=== PATIENT | female | born 1955 | race Caucasian/White ===

== ENCOUNTER → 2016-05-25 | Outpatient (CLI) | payer OTHER ==
--- NOTE | 2016-05-27 13:11 | RADONC ---
RADIATION ONCOLOGY FOLLOWUP NOTE DATE: 05/25/2016 CHART NUMBER: [id number] DIAGNOSIS: Left breast cancer. STAGE: IA, [id number]. ECOG PERFORMANCE STATUS: 0. FOLLOWUP NOTE: Ms. Eli is a very pleasant, 61-year-old white female with the diagnosis of a stage IA, [id number], moderately differentiated invasive ductal carcinoma of the left breast who is presenting to us today for routine followup visit almost 1 year post completion of external beam radiation therapy. The patient presents today reporting that she is doing quite well with no complaints at this time related to her radiation therapy or disease. She has no breast or bone pain. REVIEW OF SYSTEMS: The patient's review of systems is noncontributory. She denies nausea, vomiting, fevers, chills, night sweats, diplopia, headaches, anxiety or depression, anorexia, weight loss, visual disturbances, chest pain, urinary or bowel difficulties, bone pain, or neurological problems. PHYSICAL EXAMINATION: The patient is a well-developed, well-nourished 61-year-old female in no acute distress. HEENT exam is normocephalic, atraumatic. Extraocular movements are intact. There is no palpable cervical, supraclavicular, infraclavicular, axillary, or inguinal lymphadenopathy present. Lungs are clear to auscultation and percussion. Heart has a regular rate and rhythm. Abdomen is benign with no hepatosplenomegaly, masses, or tenderness. Breast examination reveals no masses or discharge bilaterally. Skeletal examination reveals no tenderness to pressure or percussion of the bony skeleton. Extremities reveal no clubbing, cyanosis, or edema. Neurologic exam is grossly intact, as is the remainder of the physical examination. ASSESSMENT: The patient is clinically JOSE MARTIN at this time and will be seen by us again in 6 months for further followup. She will also continue to be followed by her other physicians as well. cc: RAMOS Hernandez *Laxmi Hutchison MD
== END ==
LOC: M ONCR 09:08
PROVIDERS: ATTEND Radiology Radiation Oncology
DX: C50.212 Malignant neoplasm of upper-inner quadrant of left female breast (principal)

== ENCOUNTER → 2016-05-31 | Outpatient (CLI) | payer OTHER ==
--- NOTE | 2016-05-31 13:35 | REP ---
Clinical: Pain. Technique: AP, lateral, bilateral oblique views of the right hand. Comparison: 02/11/2016. Findings: Moderate arthritic degenerative changes primarily involving the first digit and second through fifth interphalangeal joints. Findings include joint space narrowing with subchondral sclerosis and marginal spurring. No obvious acute fracture or dislocation. Impression: Moderate arthritic degenerative changes. No acute fracture or dislocation. Signed by Clyde Rashid MD 05/31/2016 01:27 P
== END ==
LOC: M RAD 12:49
PROVIDERS: ATTEND Physician Assistant
DX: M79.644 Pain in right finger(s) (principal)

== ENCOUNTER → 2016-05-31 | Outpatient (CLI) | payer OTHER ==
--- NOTE | 2016-05-31 15:02 | REP ---
BILATERAL DIGITAL SCREENING MAMMOGRAM: 05/31/2016 Comparison 12/19/2014, mammogram and left breast ultrasound. Clinical history: Status post left breast lumpectomy and radiation therapy for breast carcinoma at age 59. She has no current complaints or any known family history of breast cancer. Findings: Standard two-view mammography performed. A scar marker is present over the central and upper outer quadrant of the left breast anteriorly. There are surgical clips in the central right breast in noon position and towards the upper outer quadrant on the left. There is less breast tissue than on the previous study after lumpectomies. There is heterogeneously dense fibroglandular tissue in the retroareolar zone in a more symmetric pattern than on the previous mammogram. I do not see a dominant mass, architectural distortion, suspicious cluster of microcalcification, nor any other secondary sign of malignancy. No skin thickening or axillary mass/nodule. Additional left CC view of the nipple in profile and anterior left MLO view to better image the entire breast. There is some skin thickening related to radiation therapy and some slight increased stromal density. Impression: 1. BIRADS ACR category 2 benign. Benign findings. Postoperative and postradiation changes of the right breast without new or dominant mass, architectural distortion or other secondary signs of malignancy. There is some skin thickening and surgical clips from prior radiation and lumpectomy. No other significant finding or sign of malignancy. Recommend followup mammography one year. This mammogram was interpreted with the aid of an FDA-approved computer-aided detection system. The patient states she/he had a clinical breast exam in May 2016. The patient letter being requested is M1 (Dense). Signed by Humza Morris MD 05/31/2016 05:46 P
== END ==
LOC: M RAD 12:17
PROVIDERS: ATTEND Radiology Radiation Oncology
DX: C50.919 Malignant neoplasm of unspecified site of unspecified female breast (principal)

== ENCOUNTER → 2016-06-06 | Outpatient (REF) | payer OTHER ==
[2016-06-06 15:53] LABS: ALBUMIN 3.8 GM/DL (3.2-5.2); ALBUMIN/GLOBULIN RATIO 1.12 (1.00-1.93); ALKALINE PHOSPHATASE 57 U/L (45-117); ALT/SGPT 22 U/L (12-78); ANION GAP 10 MEQ/L (8-16); AST/SGOT 21 U/L (15-37); BILIRUBIN,TOTAL 0.4 MG/DL (0.2-1.0); BLOOD UREA NITROGEN 10 MG/DL (7-18); CALCIUM LEVEL 8.8 MG/DL (8.8-10.2); CARBON DIOXIDE LEVEL 25 MEQ/L (21-32); CHLORIDE LEVEL 108 MEQ/L (98-107); CHOLESTEROL LEVEL 183 MG/DL (<200); CREATININE FOR GFR 0.77 MG/DL (0.55-1.02); GLOMERULAR FILTRATION RATE > 60.0 (>45); GLUCOSE, FASTING 90 MG/DL (80-110); POTASSIUM SERUM 4.2 MEQ/L (3.5-5.1); SODIUM LEVEL 143 MEQ/L (136-145); TOTAL PROTEIN 7.2 GM/DL (6.4-8.2); TRIGLYCERIDES LEVEL 87 MG/DL (<150)
[2016-06-06 16:10] LABS: MEAN CORPUSCULAR HEMOGLOBIN 31.8 pg (27.0-33.0); MEAN CORPUSCULAR HGB CONC 33.6 g/dl (32.0-36.5); MEAN CORPUSCULAR VOLUME 94.7 fl (80.0-96.0); RED CELL DISTRIBUTION WIDTH 12.9 % (11.5-14.5); WHITE BLOOD COUNT 8.4 K/mm3 (4.0-10.0)
== END ==
LOC: M SFHCSACK 08:45
PROVIDERS: ATTEND Physician Assistant
DX: Z92.3 Personal history of irradiation (principal); Z85.3 Personal history of malignant neoplasm of breast; E78.5 Hyperlipidemia, unspecified; Z11.59 Encounter for screening for other viral diseases; E55.9 Vitamin D deficiency, unspecified

== ENCOUNTER → 2016-06-13 | Outpatient (REF) | payer OTHER | LOC: CANPREREF → M SFHCSACK 09:42 | PROVIDERS: ATTEND Physician Assistant | DX: Z53.8 Procedure and treatment not carried out for other reasons (principal) ==

== ENCOUNTER → 2016-10-03 | Outpatient (REF) | payer OTHER | LOC: M SFHCSACK 15:33 | PROVIDERS: ATTEND Physician Assistant | DX: J02.9 Acute pharyngitis, unspecified (principal) ==

== ENCOUNTER → 2016-12-07 | Outpatient (CLI) | payer OTHER ==
--- NOTE | 2016-12-07 12:28 | RADONC ---
RADIATION ONCOLOGY FOLLOWUP NOTE DATE: 12/07/2016 CHART NUMBER: [id number] DIAGNOSIS: Left breast cancer stage I A, [id number]. ECOG PERFORMANCE STATUS: 0. FOLLOWUP NOTE: Ms. Eli is a very pleasant, 61-year-old white female with the diagnosis of a stage I A, [id number], moderately differentiated invasive ductal carcinoma of the left breast who is presenting to us today for routine followup visit 1-1/2 years post completion of external beam radiation therapy. The patient presents today reporting that she is doing quite well with no complaints at this time related to her radiation therapy or disease. She has no breast or bone pain. REVIEW OF SYSTEMS: The patient's review of systems is noncontributory. Denies nausea, vomiting, fevers, chills, night sweats, diplopia, headaches, anxiety or depression, anorexia, weight loss, visual disturbances, chest pain, urinary or bowel difficulties, bone pain, or neurological problems. PHYSICAL EXAMINATION The patient is a well-developed, well-nourished, 61-year-old female in no acute distress. HEENT exam is normocephalic, atraumatic. Extraocular movements are intact. There is no palpable cervical, supraclavicular, infraclavicular, axillary, or inguinal lymphadenopathy present. Lungs are clear to auscultation and percussion. Heart has a regular rate and rhythm. Abdomen is benign with no hepatosplenomegaly, masses, or tenderness. Breast examination reveals no masses or discharge bilaterally. Skeletal examination reveals no tenderness to pressure or percussion of the bony skeleton. Extremities reveal no clubbing, cyanosis, or edema. Neurologic exam is grossly intact, as is the remainder of the physical examination. ASSESSMENT: The patient is clinically JOSE MARTIN at this time and will be seen by us again in 6 months for further followup. She will also continue be followed by her other physicians as well. cc: Laxmi Hutchison MD [facility]
== END ==
LOC: M ONCR 09:44
PROVIDERS: ATTEND Radiology Radiation Oncology
DX: C50.212 Malignant neoplasm of upper-inner quadrant of left female breast (principal)

== ENCOUNTER → 2016-12-19 | Outpatient (REF) | payer OTHER ==
[2016-12-19 16:47] LABS: ALBUMIN 3.7 GM/DL (3.2-5.2); ALBUMIN/GLOBULIN RATIO 1.09 (1.00-1.93); ALKALINE PHOSPHATASE 59 U/L (45-117); ALT/SGPT 26 U/L (12-78); ANION GAP 6 MEQ/L (8-16); AST/SGOT 15 U/L (15-37); BILIRUBIN,TOTAL 0.3 MG/DL (0.2-1.0); BLOOD UREA NITROGEN 16 MG/DL (7-18); CALCIUM LEVEL 9.4 MG/DL (8.8-10.2); CARBON DIOXIDE LEVEL 28 MEQ/L (21-32); CHLORIDE LEVEL 110 MEQ/L (98-107); CHOLESTEROL LEVEL 169 MG/DL (<200); CREATININE FOR GFR 0.65 MG/DL (0.55-1.02); GLOMERULAR FILTRATION RATE > 60.0 (>45); GLUCOSE, FASTING 78 MG/DL (80-110); POTASSIUM SERUM 4.5 MEQ/L (3.5-5.1); SODIUM LEVEL 144 MEQ/L (136-145); TOTAL PROTEIN 7.1 GM/DL (6.4-8.2); TRIGLYCERIDES LEVEL 86 MG/DL (<150)
== END ==
LOC: M SFHCSACK 09:37
PROVIDERS: ATTEND Physician Assistant
DX: E78.5 Hyperlipidemia, unspecified (principal); Z85.3 Personal history of malignant neoplasm of breast; E55.9 Vitamin D deficiency, unspecified

== ENCOUNTER → 2017-01-13 | Outpatient (CLI) | payer OTHER ==
--- NOTE | 2017-01-17 07:18 | RADONC ---
RADIATION ONCOLOGY FOLLOWUP NOTE DATE: 01/13/2017 CHART NUMBER: [id number] DIAGNOSIS: Left breast cancer. STAGE: I A, [id number]. ECOG PERFORMANCE STATUS: 0. FOLLOWUP NOTE: Ms. Eli is a very pleasant 61-year-old white female with the diagnosis of a stage I A, [id number], moderately differentiated invasive ductal carcinoma of the left breast who is presenting to us today for a followup visit one and a half years post completion of external beam radiation therapy. The patient presents today reporting that for the past 3 weeks or so she believes she feels a small lump in her left breast. She says it was not noticeable when she came in for followup in November of this year. REVIEW OF SYSTEMS: The patient's review of systems is noncontributory. Denies nausea, vomiting, fevers, chills, night sweats, diplopia, headaches, anxiety or depression, anorexia, weight loss, visual disturbances, chest pain, urinary or bowel difficulties, bone pain, or neurological problems. PHYSICAL EXAMINATION: The patient is a well-developed, well-nourished, 61-year-old female in no acute distress. HEENT exam is normocephalic, atraumatic. Extraocular movements are intact. There is no palpable cervical, supraclavicular, infraclavicular, axillary, or inguinal lymphadenopathy present. Lungs are clear to auscultation and percussion. Heart has a regular rate and rhythm. Abdomen is benign with no hepatosplenomegaly, masses, or tenderness. Breast examination reveals no masses or discharge bilaterally. Skeletal examination reveals no tenderness to pressure or percussion of the bony skeleton. Extremities reveal no clubbing, cyanosis, or edema. Neurologic exam is grossly intact, as is the remainder of the physical examination. ASSESSMENT: The patient today reports she does not know where the lump is and she cannot actually feel it at this time. On my physical exam, I do not feel anything suspicious either. The patient is quite anxious however and reports that it has been there for weeks and she wishes to further look into the matter. In light of her concerns, I have scheduled her for a MRI of the breast to be undertaken. She will then return to me following the MRI of the breast. We will continue to follow her closely. cc: Laxmi Hutchison MD [facility]
== END ==
LOC: M ONCR 11:27
PROVIDERS: ATTEND Radiology Radiation Oncology
DX: C50.212 Malignant neoplasm of upper-inner quadrant of left female breast (principal)

== ENCOUNTER → 2017-01-24 | Outpatient (CLI) | payer OTHER ==
--- NOTE | 2017-01-24 13:31 | REP ---
DIAGNOSTIC MAMMOGRAM LEFT BREAST WITH LEFT BREAST ULTRASOUND: Diagnostic mammogram left breast performed with MLO and CC views obtained as well as spot compression views. Patient reports a palpable abnormality in the upper left breast which is marked on the skin with a triangular marker. Comparison is made with multiple prior exams, the most recent of which is 05/31/2016. There is heterogeneous dense fibroglandular tissue in the left breast which is unchanged in appearance. Metallic clips are again seen posteriorly and superiorly. I see no new mass or clustered microcalcifications. Real-time sonographic evaluation of the left breast performed in the region of the palpable abnormality at 12-o'clock in the left breast. There is an oval cystic structure at this location 2.7 x 1.1 x 1.4 cm which is benign. IMPRESSION: ACR 2 benign. No suspicious mass or clustered microcalcifications. There is no mammographic abnormality at the site of the reported palpable lump at 12-o'clock left breast, but by ultrasound, there is an oval cyst at that location measuring 2.7 x 1.1 x 1.4 cm. No other significant findings. Clinical correlation and followup recommended. Recommend followup bilateral mammogram in May 2017. BI-RADS/ACR category 2 mammogram. Benign finding(s). Routine annual screening mammography (for women over age 40). This mammogram was interpreted with the aid of an FDA-approved computer-aided detection system. A. Negative x-ray reports should not delay biopsy if a dominant or clinically suspicious mass is present. B. Four to eight percent of cancers are not identified by x-ray. C. Adenosis and dense breasts may obscure an underlying neoplasm. The patient states she had a clinical breast exam in 01/2017. The patient letter being requested is M2. Signed by Riky Nolasco MD 01/24/2017 07:59 P
== END ==
LOC: M RAD 11:22
PROVIDERS: ATTEND Radiology Radiation Oncology
DX: N60.02 Solitary cyst of left breast (principal)
CPT/HCPCS: 76642; G0206

== ENCOUNTER → 2017-01-26 | Outpatient (REF) | payer OTHER | LOC: M SFHCWAGY 15:08 | PROVIDERS: ATTEND Nurse Practitioner Women's Health | DX: Z12.4 Encounter for screening for malignant neoplasm of cervix (principal) ==

== ENCOUNTER → 2017-03-08 | Outpatient (CLI) | payer OTHER | LOC: M SFHCSACK 13:30 | PROVIDERS: ATTEND Registered Nurse Psychiatric/Mental Health | DX: R06.02 Shortness of breath (principal) ==

== ENCOUNTER 2017-03-22 09:27 | Emergency (ER) | payer OTHER ==
[~2017-03-22] VITALS: Ht 167.6 cm; Wt 54.4 kg
[2017-03-22] MEDS ORDERED: HYDR-3719 (09:48)
[2017-03-22] MEDS ORDERED: ZOLO100T (09:48)
[2017-03-22] MEDS ORDERED: VITA1CAP40 (09:48)
[2017-03-22] MEDS ORDERED: ANAS1TAB (09:48)
[2017-03-22] MEDS ORDERED: NS 1,000 ML IV ONE (10:30)
[2017-03-22 10:46] LABS: MUCUS, URINE RFX SMALL (NEGATIVE); SPECIFIC GRAVITY UR AUTO RFX 1.016 (1.002-1.035); SQUAM EPITHELIAL CELL UR AURFX 2 /HPF (0-6)
[2017-03-22 10:55] LABS: BASO % 0.2 % (0.0-1.0); EOS % 0.4 % (0.0-3.0); IMMATURE GRANULOCYTE % 0.3 % (0-0); LYMPH # 1.7 10^3/uL (1.5-4.5); LYMPH % 18.7 % (24.0-44.0); MEAN CORPUSCULAR HEMOGLOBIN 30.7 pg (27.0-33.0); MEAN CORPUSCULAR HGB CONC 34.4 g/dl (32.0-36.5); MEAN CORPUSCULAR VOLUME 89.1 fl (80.0-96.0); MONO # 0.8 10^3/uL (0.0-0.8); MONO % 8.3 % (0.0-5.0); NEUTROPHILS # 6.7 10^3/uL (1.8-7.7); NEUTROPHILS % 72.1 % (36.0-66.0); PLATELET COUNT, AUTOMATED 320 10^3/uL (150-450); RED CELL DISTRIBUTION WIDTH 13.4 % (11.5-14.5); WHITE BLOOD COUNT 9.3 10^3/uL (4.0-10.0)
[2017-03-22 11:15] LABS: ALBUMIN 4.2 GM/DL (3.2-5.2); ALBUMIN/GLOBULIN RATIO 1.02 (1.00-1.93); ALKALINE PHOSPHATASE 69 U/L (45-117); ALT/SGPT 25 U/L (12-78); ANION GAP 8 MEQ/L (8-16); AST/SGOT 24 U/L (7-37); BILIRUBIN,TOTAL 0.4 MG/DL (0.2-1.0); BLOOD UREA NITROGEN 11 MG/DL (7-18); CALCIUM LEVEL 9.7 MG/DL (8.8-10.2); CARBON DIOXIDE LEVEL 27 MEQ/L (21-32); CHLORIDE LEVEL 104 MEQ/L (98-107); CREATININE FOR GFR 0.75 MG/DL (0.55-1.02); GLOMERULAR FILTRATION RATE > 60.0 (>45); GLUCOSE, FASTING 110 MG/DL (80-110); POTASSIUM SERUM 4.1 MEQ/L (3.5-5.1); SODIUM LEVEL 139 MEQ/L (136-145); TOTAL PROTEIN 8.3 GM/DL (6.4-8.2)
[2017-03-22 12:09] VITALS: BP 168/86
== END 2017-03-22 12:11 | disposition home or self-care (01) ==
LOC: M ED 09:27
DX: R19.7 Diarrhea, unspecified (principal); G47.30 Sleep apnea, unspecified; F99 Mental disorder, not otherwise specified; F17.210 Nicotine dependence, cigarettes, uncomplicated; Z87.442 Personal history of urinary calculi; Z98.890 Other specified postprocedural states; Z88.8 Allergy status to other drugs, medicaments and biological substances

== ENCOUNTER → 2017-03-23 | Outpatient (REF) | payer OTHER ==
[~2017-03-23] MED LIST: ANAS1TAB PO; CLON0.5T PO; HYDR-3719 PO; LORA10TA2 PO; MULT1TAB10 PO; VENTAER INH; VITA1CAP40 PO; ZOLO100T PO
== END ==
LOC: M LAB REF 11:32
PROVIDERS: ATTEND Physician Assistant
DX: Z00.00 Encounter for general adult medical examination without abnormal findings (principal)

== ENCOUNTER → 2017-03-24 | Outpatient (REF) | payer OTHER ==
[2017-03-24 15:24] LABS: BASO % 0.4 % (0.0-1.0); EOS # 0.1 10^3/uL (0.0-0.50); EOS % 0.5 % (0.0-3.0); IMMATURE GRANULOCYTE % 0.2 % (0-0); LYMPH # 1.9 10^3/uL (1.5-4.5); LYMPH % 19.2 % (24.0-44.0); MEAN CORPUSCULAR HEMOGLOBIN 30.5 pg (27.0-33.0); MEAN CORPUSCULAR HGB CONC 33.8 g/dl (32.0-36.5); MEAN CORPUSCULAR VOLUME 90.5 fl (80.0-96.0); MONO # 0.9 10^3/uL (0.0-0.8); MONO % 9.3 % (0.0-5.0); NEUTROPHILS # 6.9 10^3/uL (1.8-7.7); NEUTROPHILS % 70.4 % (36.0-66.0); PLATELET COUNT, AUTOMATED 282 10^3/uL (150-450); RED CELL DISTRIBUTION WIDTH 13.3 % (11.5-14.5); WHITE BLOOD COUNT 9.8 10^3/uL (4.0-10.0)
[2017-03-24 15:44] LABS: ALBUMIN 4.2 GM/DL (3.2-5.2); ALKALINE PHOSPHATASE 59 U/L (45-117); ALT/SGPT 24 U/L (12-78); ANION GAP 9 MEQ/L (8-16); AST/SGOT 16 U/L (7-37); BILIRUBIN,TOTAL 0.3 MG/DL (0.2-1.0); BLOOD UREA NITROGEN 12 MG/DL (7-18); CALCIUM LEVEL 9.4 MG/DL (8.8-10.2); CARBON DIOXIDE LEVEL 27 MEQ/L (21-32); CHLORIDE LEVEL 103 MEQ/L (98-107); CREATININE FOR GFR 0.69 MG/DL (0.55-1.02); FREE T4 1.16 NG/DL (0.76-1.46); GLOMERULAR FILTRATION RATE > 60.0 (>45); GLUCOSE, FASTING 99 MG/DL (80-110); POTASSIUM SERUM 4.3 MEQ/L (3.5-5.1); SODIUM LEVEL 139 MEQ/L (136-145); TOTAL PROTEIN 7.7 GM/DL (6.4-8.2)
== END ==
LOC: M SFHCSACK 08:36
PROVIDERS: ATTEND Physician Assistant
DX: R63.4 Abnormal weight loss (principal); E78.5 Hyperlipidemia, unspecified; E55.9 Vitamin D deficiency, unspecified

== ENCOUNTER → 2017-03-24 | Outpatient (CLI) | payer OTHER | LOC: M SFHCSACK 08:46 | PROVIDERS: ATTEND Registered Nurse Psychiatric/Mental Health | DX: F43.10 Post-traumatic stress disorder, unspecified (principal) ==

== ENCOUNTER 2017-03-29 09:29 | Inpatient (IN) | payer OTHER ==
[~2017-03-29] VITALS: Ht 167.6 cm; Wt 54.6 kg
[~2017-03-29 09:29] MED LIST changes: -CLON0.5T PO; -LORA10TA2 PO; -MULT1TAB10 PO; -VENTAER INH
[2017-03-29] MEDS ORDERED: MULT1TAB10 PO (09:47)
[2017-03-29 11:37] LABS: MEAN CORPUSCULAR HGB CONC 34.9 g/dl (32.0-36.5); MEAN CORPUSCULAR VOLUME 88.8 fl (80.0-96.0); PLATELET COUNT, AUTOMATED 261 10^3/uL (150-450); RED CELL DISTRIBUTION WIDTH 13.6 % (11.5-14.5); WHITE BLOOD COUNT 8.8 10^3/uL (4.0-10.0)
[2017-03-29 11:54] LABS: METHADONE URINE NEGATIVE (NEGATIVE)
[2017-03-29 12:07] LABS: ALBUMIN 3.9 GM/DL (3.2-5.2); ALBUMIN/GLOBULIN RATIO 1.05 (1.00-1.93); ALKALINE PHOSPHATASE 55 U/L (45-117); ALT/SGPT 21 U/L (12-78); ANION GAP 6 MEQ/L (8-16); AST/SGOT 14 U/L (7-37); BILIRUBIN,DIRECT < 0.1 MG/DL (0.0-0.2); BILIRUBIN,TOTAL 0.3 MG/DL (0.2-1.0); BLOOD UREA NITROGEN 20 MG/DL (7-18); CARBON DIOXIDE LEVEL 26 MEQ/L (21-32); CHLORIDE LEVEL 107 MEQ/L (98-107); CREATININE FOR GFR 0.52 MG/DL (0.55-1.02); GLOMERULAR FILTRATION RATE > 60.0 (>45); GLUCOSE, FASTING 86 MG/DL (80-110); POTASSIUM SERUM 4.5 MEQ/L (3.5-5.1); SODIUM LEVEL 139 MEQ/L (136-145); TOTAL PROTEIN 7.6 GM/DL (6.4-8.2)
[2017-03-29] MEDS ORDERED: VENTAER INH (14:00)
[2017-03-29] MEDS ORDERED: CLON0.5T PO (14:00)
[2017-03-29] MEDS ORDERED: LORA10TA2 PO (14:00)
[2017-03-29 15:49] VITALS: BP 145/88
[2017-03-29] MEDS ORDERED: LORATADINE 10 MG TAB PO PRN (17:15)
[2017-03-29] MEDS ORDERED: MOM 30ML SUSPENSION UDC PO PRN (17:15)
[2017-03-29] MEDS ORDERED: ALBUTEROL 90 MCG/ACT 8GM HFA INHALER INH PRN (17:15)
[2017-03-29] MEDS ORDERED: traZODone 50 MG TAB PO PRN (17:15)
[2017-03-29] MEDS ORDERED: ACETAMINOPHEN TAB 650MG DOSE (2X325MG) PO PRN (17:15)
[2017-03-29] MEDS ORDERED: MAALOX 30 ML SUSP *UDC PO PRN (17:15)
[2017-03-29] MEDS: LORazepam 1 MG TAB PO PRN (18:15)
[2017-03-29 18:30] VITALS: BP 138/72
[2017-03-30 06:54] VITALS: BP 147/88
[2017-03-30] MEDS: MULTIVITAMINS/MINERALS THERAP 1 TAB PO SCH (09:10)
[2017-03-30] MEDS: ARIPiprazole 2 MG TAB PO SCH (09:10)
[2017-03-30] MEDS: SERTRALINE HCL 50 MG TAB PO SCH (09:10)
--- NOTE | 2017-03-30 09:58 | HPEPDOC ---
[facility] Medical History & Physical Date of Admission Mar 29, 2017 History and Physical PCP: NISHA [facility] ATTENDING: Dr. Bunny Forrest HPI: 61yoF admitted to [facility] for unspecified depressive disorder, being medically examined today. Patient states she has had many side effects from recent medication changes. She has been experiencing weakness and decreased appetite related to this. She states she has difficulty ambulating related to weakness. No falls. She does not use any assistive devices. Denies any fevers, chills, weakness, fatigue, GARCIA, CP, SOB, cough, palpitations, abdominal pain, N/V/D or changes in bowel or bladder habits. PMH COPD (CHRONIC OBSTRUCTIVE PULMONARY DISEASE) GIARDIASIS AT AGE 18 CVA AT AGE 22 (CAUSE UNKNOWN) RESULTING IN RIGHT HEMIPARESIS THAT SHE HAD TO REHABILITATE FOR (HAD ARTERIOGRAM AND SPINAL TAP) SeiZURE DISORDER (PETIT MAL) S/P CVA AT AGE 22, RESOLVED WITH ONSET OF MENOPAUSE IN 1979 SHE HAD RARE PREGNACY AND CARRIED FETUS FOR A YEAR BEFORE DELIVERING IN HOSPITAL PLANTAR FASCIITIS, RIGHT FECAL INCONTINENCE URINARY INCONTINENCE CHRONIC LOW BACK PAIN ABDOMINAL ADHESIONS GERD (GASTROESOPHAGEAL REFLUX DISEASE) VITAMIN D DEFICIENCY ASTHMA INSOMNIA LUMBAR DISC DISEASE WITH RADICULOPATHY CHRONIC KNEE PAIN OBSTRUCTIVE SLEEP APNEA OF ADULT CHRONIC RIGHT HIP PAIN History of breast cancer status post left lumpectomy. Follows with oncology [facility], Dr. Williamson. Radiation therapy completed. SURGICAL HISTORY TONSILLECTOMY AGE 4 LAPARSCOPIC DILATION AND CURETTAGE X 3 AGE 18S CHOLECYSTECTOMY WITH ADHESION REMOVAL BETWEEN LIVER AND GALLBLADDER, COMMON BILE DUCT NICKED AGE 38 HIATAL HERNIA REPAIR AND LAPAROSCOPY FOR ADHESION REMOVAL (DR. LUIS MCADAMS) FOR FECAL INCONTINENCE AND FOOD AND REGURGITATION 2009 LUMPECTOMY OF LEFT BREAST MALIGNANT-RADIATION 02/19/15 COLONOSCOPY 2012 SOCHX: Resides in: [facility] Marital Status: Kids: 1 Employment: Disabled Tobacco use: One pack per day ETOH: 4 drinks per week Illicit Drugs: Marijuana daily for years IV Drug Use: Denies Tattoos done unprofessionally: Denies FAMHX: Mother: , diabetes Father: Unknown Siblings: 3 brothers Alive, unknown Children: Unknown ROS: As noted in HPI, otherwise 11pt ROS of systems reviewed and remarkable only for LMP NA, menopausal. PE: GEN: 61 yo F, appears stated age. Well-nourished, well developed. No acute distress. Alert and oriented x 3. Pleasant, interactive. HEENT: Normocephalic, atraumatic. Pupils are equal, round, and reactive to light. Extraocular movements are intact. No nystagmus appreciated. Sclera are nonicteric. Conjunctiva without injection. Nose midline. Nasal turbinates without bogginess. EACs both patent BL. TMs both visualized and ugalde with good cone of light, no bulging or erythema. No facial asymmetry. Moist mucous membranes. Upper and lower dentures. Pharynx pink and moist. Neck supple, trachea midline. No lymphadenopathy or thyromegaly appreciated. CHEST: Regular rate and rhythm, +S1, +S2 LUNGS: Clear to auscultation bilaterally. No wheezes, rales, or rhonchi. Breathing appears symmetric and easy. Patient is speaking in full sentences. No accessory muscle use. ABD: Flat, soft, non-tender, non-distended. +Bowel sounds throughout. No rebound or guarding. No costovertebral angle tenderness. EXT: Pulses 2+ bilaterally dorsalis pedis and radial. No lower extremity edema appreciated. SKIN: [place], dry, warm. Capillary refill <2sec. No rashes. NEURO: Alert and oriented x 3. Cranial nerves III-XII are intact. No focal deficits appreciated. EKG: Pending A&P: 61yoF admitted to [facility] for unspecified depressive disorder 1. Psych. Plan per Psychiatry. Obtain baseline EKG to assure the safety of psychiatric medications as they can prolong the QT interval. 2. Nicotine dependence. Patch available. 3. Weakness. Request physical therapy evaluation. 4. Follow up with PCP on discharge. 5. Substance use. Per psychiatry. 6. Poor appetite. BMI is noted to be 18.9. Request nutritional evaluation. Daily weight. Monitor Intake /output. 7. Asthma. Continue albuterol HFA 2 puffs every 4 hours as needed. 8. Allergic rhinitis. Continue Claritin 10 mg daily as needed. 9. History of breast cancer. Status post left lumpectomy. Follows with oncology [facility]. Pleaded radiation therapy with Dr. Abreu. Continue Anastrazole as per outpatient regimen 1 mg by mouth daily. 10. Chronic low back pain/chronic hip pain/chronic knee pain/chronic pain. Patient states her pain is controlled with hydrocodone. She follows with pain management, Dr. Mcelroy. Continue outpatient follow-up with Dr. Cunha for pain management. Continue hydrocodone 7.5/325 every 4 hours as needed. ISTOP is accessed reference #[id number] indicating hydrocodone 10/325 #180, 30 day supply dispensed 03/28/[address] Cunha. Consider pain management consultation if needed. 11. Staff member Carmen ALONSO present throughout exam. Vital Signs Vital Signs Date Time Temp Pulse Resp B/P (MAP) Pulse Ox O2 Delivery O2 Flow Rate FiO2 03/30/17 06:54 98.2 69 18 147/88 (107) 03/29/17 15:49 97 Room Air Laboratory Data Labs 24H Laboratory Tests 2 03/29/17 11:16: Nucleated Red Blood Cells % (auto) 0.0, Anion Gap 6L, Glomerular Filtration Rate > 60.0, Calcium Level 9.0, Aspartate Amino Transf (AST/SGOT) 14, Alanine Aminotransferase (ALT/SGPT) 21, Alkaline Phosphatase 55, Total Bilirubin 0.3, Direct Bilirubin < 0.1, Total Protein 7.6, Albumin 3.9, Albumin/Globulin Ratio 1.05, Thyroid Stimulating Hormone (TSH) 0.937, Salicylates Level 5.6, Urine Amphetamines Screen NEGATIVE, Urine Benzodiazepines Screen NEGATIVE, Urine Opiates Screen POSITIVEH, Urine Methadone Screen NEGATIVE, Acetaminophen Level < 2.0L, Urine Barbiturates Screen NEGATIVE, Urine Phencyclidine Screen NEGATIVE , Urine Cocaine Metabolite Screen NEGATIVE, Urine Cannabinoids Screen POSITIVEH , Ethyl Alcohol Level < 0.003 CBC/BMP Laboratory Tests 03/29/17 11:16 Red Blood Count 5.07, Mean Corpuscular Volume 88.8, Mean Corpuscular Hemoglobin 31.0, Mean Corpuscular Hemoglobin Concent 34.9, Red Cell Distribution Width 13.6 Home Medications Scheduled Anastrozole (Anastrozole) 1 Mg Tab, 1 MG PO DAILY Ergocalciferol (Vitamin D) 50,000 Unit Cap, 50,000 UNIT PO QWEEK SATURDAYS Multivitamins (Multivitamin Adults) 1 Tab Tab, 1 TAB PO DAILY Sertraline Hcl (Zoloft) 100 Mg Tab, 200 MG PO DAILY Scheduled PRN Acetaminophen/Hydrocodone (Hydrocodone/Acetaminophen 10-325 mg) 1 Tab Tab, 1 TAB PO Q4H PRN for PAIN Albuterol Sulfate (Ventolin Hfa) 108 Mcg/Act Aer, 2 PUFFS INH Q4H PRN for SHORTNESS OF BREATH Clonazepam (Clonazepam) 0.5 Mg Tab, 0.25 MG PO BID PRN for ANXIETY Loratadine (Loratadine) 10 Mg Tab, 10 MG PO DAILY PRN for ALLERGIES Allergies Coded Allergies: Statins (Verified Allergy, Severe, swelling, 03/22/17) Fluoxetine (Verified Adverse Reaction, Severe, suicidal ideations, ) Seema Sims Mar 30, 2017 09:58
[2017-03-30] MEDS: ANEXSIA, NORCO 7.5MG/325MG TABLET(HYDROCODONE/APAP) PO PRN ×2 (10:56→16:34)
[2017-03-30 18:00] VITALS: BP 140/73
--- NOTE | 2017-03-30 19:18 | ECGEPIP ---
Stationary ECG Study [facility] Test Date: 2017-03-30 Pat Name: YUE CAPUTO Department: Room: [place] [address] Gender: F Panel Cutter: JUAN A : 1955 Requested By: Seema Sims Order Number: [id number] Reading MD: Bunny Forrest Measurements Intervals [place] Rate: 67 P: 81 LA: 131 QRS: 75 QRSD: 93 T: 52 QT: 364 QTc: 384 Interpretive Statements SINUS RHYTHM Comparison tracing not on file Electronically Signed On 03-30-2017 19:18:50 EST by Bunny Forrest
[2017-03-30] MEDS: LORazepam 1 MG TAB PO PRN (20:24)
[2017-03-31 06:42] VITALS: BP 142/77
[2017-03-31] MEDS: MULTIVITAMINS/MINERALS THERAP 1 TAB PO SCH (08:19)
[2017-03-31] MEDS: SERTRALINE HCL 50 MG TAB PO SCH (08:19)
[2017-03-31] MEDS: ARIPiprazole 2 MG TAB PO SCH (08:19)
[2017-03-31 08:58] LABS: ANION GAP 6 MEQ/L (8-16); BLOOD UREA NITROGEN 15 MG/DL (7-18); CALCIUM LEVEL 8.9 MG/DL (8.8-10.2); CARBON DIOXIDE LEVEL 30 MEQ/L (21-32); CHLORIDE LEVEL 105 MEQ/L (98-107); CREATININE FOR GFR 0.67 MG/DL (0.55-1.02); GLOMERULAR FILTRATION RATE > 60.0 (>45); GLUCOSE, FASTING 137 MG/DL (80-110); SODIUM LEVEL 141 MEQ/L (136-145)
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
[2017-03-31] MEDS: ANEXSIA, NORCO 7.5MG/325MG TABLET(HYDROCODONE/APAP) PO PRN ×2 (14:33→18:53)
[2017-03-31 18:00] VITALS: BP 132/88
[2017-03-31] MEDS: LORazepam 1 MG TAB PO PRN (20:29)
[2017-04-01 06:19] VITALS: BP 140/76
[2017-04-01] MEDS: MULTIVITAMINS/MINERALS THERAP 1 TAB PO SCH (08:04)
[2017-04-01] MEDS: ANEXSIA, NORCO 7.5MG/325MG TABLET(HYDROCODONE/APAP) PO PRN ×3 (08:04→22:29)
[2017-04-01] MEDS: SERTRALINE HCL 50 MG TAB PO SCH (08:04)
[2017-04-01] MEDS ORDERED: traZODone 25MG PER 1/2 TABLET PO PRN (10:15)
--- NOTE | 2017-04-01 10:19 | MHIPNPDOC ---
[facility] Progress Note Progress Note DATE OF SERVICE: 04/01/17 HISTORY: Patient reports improved mood, denies SI intent and plan. Reports good sleep after taking the ativan last night. Patient states the ativan was too strong for anxiety and it would "knock me out", discussed with patient about taking atarax instead for anxiety. Patient has not taken the trazodone yet. Patient denies having significant nightmares and in flashbacks since being in the hospital. Denies manic symptoms. Patient without side effects from any of the medications. VITAL SIGNS: See below. NEW TEST RESULTS: na CURRENT MEDICATIONS: See below. MENTAL STATUS EXAMINATION: Behavior: cooperative, calm, related Speech: Is normal RRVT Thought processes including: linear Thought content: appropriate to conversation Judgment: fair Insight: fair Orientation: aaox3 Mood: better Affect: neutral, appropriate DIAGNOSES: 1. MDD 2. PTSD ASSESSMENT: Patient's mood is improving in the therapeutic milieu and with better sleep. MANAGEMENT PLAN: Continue plan as per Dr. Ann. - Zoloft 50 mg daily - Abilify 5 mg qam - Discontinued ativan - Begin atarax 10 mg q6 PRN for anxiety TIME SPENT: 25 minutes. Vital Signs Vital Signs Date Time Temp Pulse Resp B/P (MAP) Pulse Ox O2 Delivery O2 Flow Rate FiO2 04/01/17 08:55 16 04/01/17 06:19 96.7 76 140/76 (97) 03/30/17 10:32 Room Air 03/29/17 15:49 97 Current Medications Current Medications Acetaminophen (Tylenol Tab) 650 mg Q6HP PRN PO HEADACHE or DISCOMFORT Last administered on 03/29/17 18:16; Start 03/29/17 at 17:15; Stop 04/28/17 at 17: 14 Acetaminophen/ Hydrocodone Bitart (Anexsia, [place] 7.5mg/325mg) 1 tab Q4HP PRN PO MODERATE/SEVERE PAIN (PS 5-10) Last administered on 04/01/17 08:04; Start 03/30/17 at 10:00; Stop 04/06/17 at 09:59 Al Hydrox/Mg Hydrox/Simethicone (Mylanta) 30 ml Q4HP PRN PO HEARTBURN/ INDIGESTION; Start 03/29/17 at 17:15; Stop 04/28/17 at 17:14 Albuterol Sulfate (Proventil, Ventolin Hfa) 2 puff Q4H PRN INH SHORTNESS OF BREATH; Start 03/29/17 at 17:15; Stop 04/28/17 at 17:14 Aripiprazole (AbiLIFY) 2 mg QAM PO Last administered on 03/31/17 08:19; Start 03/30/17 at 09:00; Stop 03/31/17 at 16:23; Status DC Aripiprazole (AbiLIFY) 5 mg QAM PO Last administered on 04/01/17 08:04; Start 04/01/17 at 09:00; Stop 05/01/17 at 08:59 Home Med (Med Rec Complete!) ASDIRECTED XX ; Start 03/29/17 at 14:15; Stop at 14:15; Status DC Hydroxyzine HCl (Atarax) 10 mg Q6HP PRN PO ANXIETY/AGITATION; Start 04/01/17 at 10:15; Stop 05/01/17 at 10:14; Status UNV Loratadine (Claritin) 10 mg DAILY PRN PO ALLERGIES; Start 03/29/17 at 17:15; Stop 04/28/17 at 17:14 Lorazepam (Ativan) 1 mg Q4HP PRN PO ANXIETY/AGITATION Last administered on 20:29; Start 03/29/17 at 17:15; Stop 04/05/17 at 17:14 Magnesium Hydroxide (Milk Of Magnesia) 30 ml DAILYPRN PRN PO CONSTIPATION; Start 03/29/17 at 17:15; Stop 04/28/17 at 17:14 Miscellaneous (Unresolved Patient Own Med Order) SEE LABEL COMMENTS UNRESOLVED XX ; Start 03/30/17 at 00:01; Stop 04/29/17 at 00:00 Multivitamins (Theragram-M) 1 tab DAILY PO Last administered on 04/01/17 08: 04; Start 03/30/17 at 09:00; Stop 04/29/17 at 08:59 Patient Own Medication (Patient'S Own Med) 1 ea DAILY PO ; Start 03/31/17 at 09 :00; Stop 04/30/17 at 08:59; Status UNV Sertraline HCl (Zoloft) 50 mg QAM PO Last administered on 04/01/17t 08:04; Start 03/30/17 at 09:00; Stop 04/29/17 at 08:59 Trazodone HCl (Desyrel) 50 mg QHSP PRN PO INSOMNIA; Start 03/29/17 at 17:15; Stop 04/28/17 at 17:14 Allergies Coded Allergies: Statins (Verified Allergy, Severe, swelling, 03/22/17) Fluoxetine (Verified Adverse Reaction, Severe, suicidal ideations, ) YOJANA BUTTERFIELD MD Apr 01, 2017 10:19
[2017-04-01 18:00] VITALS: BP 160/82
[2017-04-02 06:34] VITALS: BP 146/76
[2017-04-02] MEDS: MULTIVITAMINS/MINERALS THERAP 1 TAB PO SCH (08:06)
[2017-04-02] MEDS: SERTRALINE HCL 50 MG TAB PO SCH (08:06)
[2017-04-02] MEDS: hydrOXYzine 10 MG TAB PO PRN (08:57)
[2017-04-02] MEDS ORDERED: ANASTRAZOLE 1 MG PO SCH (09:00)
[2017-04-02] MEDS: ANEXSIA, NORCO 7.5MG/325MG TABLET(HYDROCODONE/APAP) PO PRN ×2 (09:08→13:14)
--- NOTE | 2017-04-02 10:55 | MHIPNPDOC ---
[facility] Progress Note Progress Note DATE OF SERVICE: 04/02/17 HISTORY: States the trazodone last night helped her sleep a few hours, but the sleep was not restful as she tossed and turned and had nightmares. Patient wishes to try different sleeping agent. Reports mild anxiety, denies depression , did not endorse SI intent and plan. Denies any other medication side effects. States the atarax is working for her anxiety. VITAL SIGNS: See below. NEW TEST RESULTS: na CURRENT MEDICATIONS: See below. MENTAL STATUS EXAMINATION: Behavior: cooperative, calm, related Speech: Is normal RRVT Thought processes including: linear Thought content: appropriate to conversation Judgment: fair Insight: fair Orientation: aaox3 Mood: OK Affect: neutral, appropriate DIAGNOSES: 1. MDD 2. PTSD ASSESSMENT: Patient's mood is improving in the therapeutic milieu and with better sleep. MANAGEMENT PLAN: Continue plan as per Dr. Ann. - Zoloft 50 mg daily - Abilify 5 mg qam - Begin atarax 10 mg q6 PRN for anxiety - Begin gabapentin 300 mg qhs for sleep TIME SPENT: 25 minutes. Vital Signs Vital Signs Date Time Temp Pulse Resp B/P (MAP) Pulse Ox O2 Delivery O2 Flow Rate FiO2 04/02/17 09:08 16 04/02/17 06:34 97.7 71 146/76 (99) 03/30/17 10:32 Room Air 03/29/17 15:49 97 Current Medications Current Medications Acetaminophen (Tylenol Tab) 650 mg Q6HP PRN PO HEADACHE or DISCOMFORT Last administered on 03/29/17 18:16; Start 03/29/17 at 17:15; Stop 04/28/17 at 17: 14 Acetaminophen/ Hydrocodone Bitart (Anexsia, [place] 7.5mg/325mg) 1 tab Q4HP PRN PO MODERATE/SEVERE PAIN (PS 5-10) Last administered on 04/02/17 09:08; Start 03/30/17 at 10:00; Stop 04/06/17 at 09:59 Al Hydrox/Mg Hydrox/Simethicone (Mylanta) 30 ml Q4HP PRN PO HEARTBURN/ INDIGESTION; Start 03/29/17 at 17:15; Stop 04/28/17 at 17:14 Albuterol Sulfate (Proventil, Ventolin Hfa) 2 puff Q4H PRN INH SHORTNESS OF BREATH; Start 03/29/17 at 17:15; Stop 04/28/17 at 17:14 Aripiprazole (AbiLIFY) 2 mg QAM PO Last administered on 03/31/17 08:19; Start 03/30/17 at 09:00; Stop 03/31/17 at 16:23; Status DC Aripiprazole (AbiLIFY) 5 mg QAM PO Last administered on 04/02/17 08:06; Start 04/01/17 at 09:00; Stop 05/01/17 at 08:59 Home Med (Med Rec Complete!) ASDIRECTED XX ; Start 03/29/17 at 14:15; Stop at 14:15; Status DC Hydroxyzine HCl (Atarax) 10 mg Q6HP PRN PO ANXIETY/AGITATION Last administered on 04/02/17 08:57; Start 04/01/17 at 10:15; Stop 05/01/17 at 10:14 Loratadine (Claritin) 10 mg DAILY PRN PO ALLERGIES; Start 03/29/17 at 17:15; Stop 04/28/17 at 17:14 Lorazepam (Ativan) 1 mg Q4HP PRN PO ANXIETY/AGITATION Last administered on 20:29; Start 03/29/17 at 17:15; Stop 04/05/17 at 17:14 Magnesium Hydroxide (Milk Of Magnesia) 30 ml DAILYPRN PRN PO CONSTIPATION; Start 03/29/17 at 17:15; Stop 04/28/17 at 17:14 Miscellaneous (Unresolved Patient Own Med Order) SEE LABEL COMMENTS UNRESOLVED XX ; Start 03/30/17 at 00:01; Stop 04/29/17 at 00:00 Multivitamins (Theragram-M) 1 tab DAILY PO Last administered on 04/02/17 08: 06; Start 03/30/17 at 09:00; Stop 04/29/17 at 08:59 Patient Own Medication (Patient'S Own Med) 1 ea DAILY PO ; Start 04/02/17 at 09 :00; Stop 05/02/17 at 08:59; Status Future Hold Sertraline HCl (Zoloft) 50 mg QAM PO Last administered on 04/02/17 08:06; Start 03/30/17 at 09:00; Stop 04/29/17 at 08:59 Trazodone HCl (Desyrel) 25 mg QHSP PRN PO INSOMNIA Last administered on 21:11; Start 04/01/17 at 10:15; Stop 05/01/17 at 10:14 Trazodone HCl (Desyrel) 50 mg QHSP PRN PO INSOMNIA; Start 03/29/17 at 17:15; Stop 04/01/17 at 10:12; Status DC Allergies Coded Allergies: Statins (Verified Allergy, Severe, swelling, 03/22/17) Fluoxetine (Verified Adverse Reaction, Severe, suicidal ideations, ) YOJANA BUTTERFIELD MD Apr 02, 2017 10:55
--- NOTE | 2017-04-02 11:35 | MHIPN ---
DATE: 03/31/2017 VITAL SIGNS: Temperature 97.6, pulse 74, respirations 18, blood pressure 142/77. CURRENT MEDICATIONS: - Abilify 2 mg every morning - Zoloft 50 mg every morning - Ativan 1 mg every 4 hours as needed - trazodone 50 mg at bedtime as needed PSYCHIATRIC HISTORY: Patient is agitating for discharge. She claims that she feels all better and wants to be discharged back home; however, the patient has minimal social supports. She has no family in the area. She lives alone. She has had chronic suicidal impulses with a suicide plan. Staff and her psychiatric provider have been very concerned about her and was arranging for admission for [facility] and are supporting her hospitalization here. The patient states that the diarrhea is much improved now that she is on the lower dose of Zoloft. She is tolerating the Abilify well also. She is not sure about the dosage. Staff at the [facility] have not been cooperative sending information regarding her dosages. The patient states that her posttraumatic stress disorder (PTSD) symptoms have been minimal. Her appetite is good. She reports sleeping reasonably well at night on the Ativan as needed. MENTAL STATUS EXAMINATION: Patient is alert, oriented and cooperative. Patient still reports anxiety but minimizes any depression. She may well be covering. She does have chronic suicidal ideation with a plan, but today minimizes it. She is not hearing voices. No signs of paranoia or thought disorder. Grooming and hygiene appear good. No signs of organicity. DIAGNOSIS: Major depression, recurrent, moderate severity. Posttraumatic stress disorder (PTSD). PLAN: Continue psychotropics. Continue milieu therapy. Continue attempt to get information from her outpatient provider to coordinate care. Patient is not safe to be discharged in my opinion, especially as her outpatient provider is strongly supporting inpatient psychiatric care.
[2017-04-02 18:00] VITALS: BP 152/72
[2017-04-02] MEDS: GABAPENTIN 300 MG CAP PO SCH (21:00)
[2017-04-03 06:13] VITALS: BP 132/77
[2017-04-03] MEDS: SERTRALINE HCL 50 MG TAB PO SCH (08:10)
[2017-04-03] MEDS: MULTIVITAMINS/MINERALS THERAP 1 TAB PO SCH (08:10)
[2017-04-03] MEDS: ANEXSIA, NORCO 7.5MG/325MG TABLET(HYDROCODONE/APAP) PO PRN ×3 (08:11→20:23)
[2017-04-03 18:02] VITALS: BP 132/82
[2017-04-03] MEDS: GABAPENTIN 300 MG CAP PO SCH (20:22)
[2017-04-04 06:48] VITALS: BP 147/85
[2017-04-04] MEDS: MULTIVITAMINS/MINERALS THERAP 1 TAB PO SCH (08:15)
[2017-04-04] MEDS: SERTRALINE HCL 50 MG TAB PO SCH (08:15)
[2017-04-04] MEDS: hydrOXYzine 10 MG TAB PO PRN (09:26)
[2017-04-04] MEDS: ANEXSIA, NORCO 7.5MG/325MG TABLET(HYDROCODONE/APAP) PO PRN (11:19)
[2017-04-04 18:34] VITALS: BP 130/87
[2017-04-04] MEDS: GABAPENTIN 300 MG CAP PO SCH (20:25)
[2017-04-05] MEDS: ANEXSIA, NORCO 7.5MG/325MG TABLET(HYDROCODONE/APAP) PO PRN ×2 (05:45→11:49)
[2017-04-05 06:54] VITALS: BP 145/81
[2017-04-05] MEDS: MULTIVITAMINS/MINERALS THERAP 1 TAB PO SCH (08:04)
[2017-04-05] MEDS: SERTRALINE HCL 50 MG TAB PO SCH (08:04)
--- NOTE | 2017-04-05 09:34 | MHIPN ---
DATE: 04/04/2017 VITAL SIGNS: Temperature 97.5, pulse 92, respirations 14, blood pressure 147/85. CURRENT MEDICATIONS: - gabapentin 300 mg at bedtime - Abilify 5 mg every morning - Zoloft 50 mg every morning PSYCH HISTORY: Patient states that her mood is less depressed. On Monday, she wanted to be discharged. However, now she is happy that she was here over the hol. She felt supported here. She feels more positive and hopeful about the future. Her appetite is improved. She slept better at night. She is less nervous. The gabapentin helped with her pain in her hip. She is tolerating her medication well. She has had no diarrhea from the Zoloft. Her friend [place] has visited twice over the weekend. She denies any suicidal ideation over the weekend. She admits to having suicidal ideation off and on over the decades, but denies any such here today or over the weekend. The patient has been social with her peers here on the unit. She has been attending the group therapy program. She has been attending the group therapy program. She has gained 4 pounds since admission. No other complaints. MENTAL STATUS EXAMINATION: Patient is alert, oriented and cooperative. Affect definitely improved. Anxiety is much reduced. Patient less depressed. She does not appear suicidal. She is not homicidal. Insight appears improved. Judgment appears good today. No signs of psychosis. Grooming and hygiene appear good. DIAGNOSES: Major depression, recurrent, improved. Posttraumatic stress disorder (PTSD) by history. Cannabis use disorder. PLAN: Continue psychotropics. Staff to start working on discharge planning.
[2017-04-05] MEDS: hydrOXYzine 10 MG TAB PO PRN (09:39)
[2017-04-05] MEDS ORDERED: ARIP5TA PO (10:22)
[2017-04-05] MEDS ORDERED: SERT50TA PO (10:24)
--- NOTE | 2017-04-06 11:43 | MHDS ---
DATE OF ADMISSION: 03/29/2017 DATE OF DISCHARGE: 04/05/2017 VITAL SIGNS: Temperature 98.3, pulse 78, respiration 20, blood pressure 145/81. CURRENT MEDICATIONS: - Zoloft 50 mg every morning - Abilify 5 mg by mouth every morning - gabapentin 300 mg by mouth nightly LABS: CBC and differential within normal limits. Chem survey within normal limits except for elevated potassium glucose of 137. Toxicology was positive for opiates and for cannabinoids. DISCHARGE DIAGNOSES: Major depression, recurrent, moderate severity. Posttraumatic stress syndrome (PTSD) by history. CHIEF COMPLAINT: The patient was sent to the emergency room by her primary physician after reporting depression and suicidal ideation. HISTORY OF PRESENT ILLNESS: This is a 61-year-old white female with a history of depression dating back to her 20s. The patient currently feels helpless and hopeless. She is isolated with few social supports. Her sleep patterns are problematic. She has had suicidal ideation with a plan but refused to divulge what the plan is. Appetite is poor. She has had weight loss of 30-40 pounds. Her concentration is poor. She has had significant diarrhea from her high dosage of Zoloft 200 mg per day. She has felt weak with lack of energy. The patient had been on Abilify for a number of years with some benefit but it was weaned off over the summer. The patient's mood has worsened since then. Her outpatient provider at transitional living services ([facility]) was planning on getting her admitted to another psychiatric facility where she has been on the waiting list. PROGRESS ON THE UNIT: The patient was initially quite oppositional to the hospitalization. She was irritated about being in the hospital over weekend. She was encouraged to cooperate with the therapeutic milieu program, which she grudgingly agreed to. Her Zoloft was reduced to 50 mg per day. She had no diarrhea on it. Her bowels returned to normal. She is a little more energetic. The patient was given a low dose gabapentin at night to help her sleep with pain. The gabapentin was very helpful for her hip pain. She was restarted Abilify 2 mg per day. It was tolerated well. The dose was increased to 5 mm every morning also with some benefit. The patient did well over the weekend. Plans were made for discharge with involvement of caser uplife enrichment manager from [facility]. MENTAL STATUS EXAMINATION AT TIME OF DISCHARGE: Mood and affect appear good. She had good eye contact. Full range of affect. No signs of depression. She denied suicidal thoughts. She had no plans. She was not hearing voices. No paranoid or thought disorder. Anxiety was minimal. Grooming and hygiene appear good. No signs of dangerousness. Memory functions intact. ASSESSMENT: The patient appears to have reached maximal hospital benefit. PLAN: Discharge to the community with mental health followup.
== END 2017-04-05 14:00 | disposition home or self-care (01) | DRG 751 ==
LOC: M ED 09:29 → M ED INP 14:29 → M PSY 15:40
PROVIDERS: ADMIT Psychiatry & Neurology Psychiatry; ATTEND Psychiatry & Neurology Psychiatry
DX: F33.1 Major depressive disorder, recurrent, moderate (principal); F43.10 Post-traumatic stress disorder, unspecified; J44.9 Chronic obstructive pulmonary disease, unspecified; G47.33 Obstructive sleep apnea (adult) (pediatric); K21.9 Gastro-esophageal reflux disease without esophagitis; E55.9 Vitamin D deficiency, unspecified; J45.909 Unspecified asthma, uncomplicated; M54.5 Low back pain; Z85.3 Personal history of malignant neoplasm of breast; F17.200 Nicotine dependence, unspecified, uncomplicated; G89.29 Other chronic pain; Z79.899 Other long term (current) drug therapy; Z88.8 Allergy status to other drugs, medicaments and biological substances

== ENCOUNTER → 2017-04-12 | Outpatient (CLI) | payer OTHER | LOC: M RAD 10:02 | DX: Z12.2 Encounter for screening for malignant neoplasm of respiratory organs (principal); F17.210 Nicotine dependence, cigarettes, uncomplicated; R91.8 Other nonspecific abnormal finding of lung field | CPT/HCPCS: G0297 ==

== ENCOUNTER → 2018-01-17 | Outpatient (REF) | payer OTHER ==
[2018-01-17 14:11] LABS: BASO % 0.3 % (0.0-1.0); EOS # 0.1 10^3/uL (0.0-0.50); EOS % 0.8 % (0.0-3.0); HEMATOCRIT 48.5 % (36.0-47.0); HEMOGLOBIN 16.4 g/dl (12.0-15.5); IMMATURE GRANULOCYTE % 0.2 % (0-3.0); LYMPH # 2.4 10^3/uL (1.5-4.5); LYMPH % 24.5 % (24.0-44.0); MEAN CORPUSCULAR HEMOGLOBIN 31.1 pg (27.0-33.0); MEAN CORPUSCULAR HGB CONC 33.8 g/dl (32.0-36.5); MEAN CORPUSCULAR VOLUME 91.9 fl (80.0-96.0); MONO # 0.9 10^3/uL (0.0-0.8); MONO % 8.6 % (0.0-5.0); NEUTROPHILS # 6.5 10^3/uL (1.8-7.7); NEUTROPHILS % 65.6 % (36.0-66.0); PLATELET COUNT, AUTOMATED 252 10^3/uL (150-450); RED BLOOD COUNT 5.28 10^6/uL (4.00-5.40); RED CELL DISTRIBUTION WIDTH 13.9 % (11.5-14.5); WHITE BLOOD COUNT 9.9 10^3/uL (4.0-10.0)
[2018-01-17 14:28] LABS: ALBUMIN 3.9 GM/DL (3.2-5.2); ALBUMIN/GLOBULIN RATIO 1.08 (1.00-1.93); ALKALINE PHOSPHATASE 69 U/L (45-117); ALT/SGPT 27 U/L (12-78); ANION GAP 6 MEQ/L (8-16); AST/SGOT 18 U/L (7-37); BILIRUBIN,TOTAL 0.5 MG/DL (0.2-1.0); BLOOD UREA NITROGEN 13 MG/DL (7-18); CALCIUM LEVEL 9.3 MG/DL (8.8-10.2); CARBON DIOXIDE LEVEL 28 MEQ/L (21-32); CHLORIDE LEVEL 108 MEQ/L (98-107); CREATININE FOR GFR 0.76 MG/DL (0.55-1.30); GLOMERULAR FILTRATION RATE > 60.0 (>45); GLUCOSE, FASTING 91 MG/DL (70-100); POTASSIUM SERUM 4.4 MEQ/L (3.5-5.1); SODIUM LEVEL 142 MEQ/L (136-145); TOTAL PROTEIN 7.5 GM/DL (6.4-8.2)
[2018-01-17 14:37] LABS: TOTAL 25(OH) VITAMIN D 38.1 NG/ML (30.0-100.0)
== END ==
LOC: M SFHCSACK 08:08
DX: M79.7 Fibromyalgia (principal); E78.5 Hyperlipidemia, unspecified; E55.9 Vitamin D deficiency, unspecified

== ENCOUNTER → 2018-02-14 | Outpatient (CLI) | payer OTHER | LOC: M WUC 09:28 | DX: M43.16 Spondylolisthesis, lumbar region (principal); M25.78 Osteophyte, vertebrae; M51.36 Other intervertebral disc degeneration, lumbar region; M12.88 Other specific arthropathies, not elsewhere classified, other specified site; M54.42 Lumbago with sciatica, left side; M54.41 Lumbago with sciatica, right side; M25.551 Pain in right hip; M25.552 Pain in left hip | CPT/HCPCS: 72110 ==

== ENCOUNTER → 2018-03-06 | Outpatient (REF) | payer OTHER ==
[2018-03-09 08:08] LABS: HPV HYBRID CAPTURE II Negative (Negative)
== END ==
LOC: M SFHCWAGY 08:47
DX: Z12.4 Encounter for screening for malignant neoplasm of cervix (principal)
CPT/HCPCS: 88142

== ENCOUNTER → 2018-03-06 | Outpatient (CLI) | payer OTHER | LOC: M WHC 08:39 | DX: Z12.31 Encounter for screening mammogram for malignant neoplasm of breast (principal); Z78.0 Asymptomatic menopausal state; Z85.3 Personal history of malignant neoplasm of breast; Z80.42 Family history of malignant neoplasm of prostate; N64.1 Fat necrosis of breast; N60.31 Fibrosclerosis of right breast; N60.32 Fibrosclerosis of left breast; M85.851 Other specified disorders of bone density and structure, right thigh; M85.852 Other specified disorders of bone density and structure, left thigh; M85.88 Other specified disorders of bone density and structure, other site | CPT/HCPCS: 77067 ==

== ENCOUNTER → 2018-07-16 | Outpatient (CLI) | payer MEDICARE, MEDICAID ==
[~2018-07-16] MED LIST changes: +ABIL1TAB11 PO; -ANAS1TAB PO; +ANAS1TAB2 PO; +ARIP1TAB6 PO; +CLON0.5T8 PO; +CYCL10TA PO; +HYDR-3363 PO; +HYDR-4517 PO; +LORA-243 PO; +MULT1TAB10 PO; +SERT-141 PO; +VENTAER INH; -VITA1CAP40 PO; +VITA50005 PO; +ZOLO25TA PO
--- NOTE | 2018-07-17 14:40 | REP ---
Clinical: Lung screening. History smoking. Comparison: 04/12/2017 Technique: Axial low-dose noncontrast images from the thoracic inlet to the upper abdomen using lung screening technique. Findings: The lung huber are well-aerated. Minimal apical scarring (right greater than left) again noted and essentially stable. No consolidation, significant nodule or mass lesion is appreciated. No pleural effusion/reaction or pneumothorax. Tracheobronchial tree is patent. Mediastinum demonstrates mild atherosclerotic changes of the coronary arteries without cardiomegaly. Impression: Lung-RADS category I. Areas of biapical scarring (right greater than left) appear relatively stable. No nodule or suspicious abnormality. Management recommendations include annual low-dose CT follow-up examination. Electronically Signed by Clyde Rashid MD 07/17/2018 02:32 P
== END ==
LOC: M RAD 08:37
PROVIDERS: ATTEND Internal Medicine Pulmonary Disease
DX: Z12.2 Encounter for screening for malignant neoplasm of respiratory organs (principal); J98.4 Other disorders of lung; F17.218 Nicotine dependence, cigarettes, with other nicotine-induced disorders

== ENCOUNTER → 2018-07-26 | Outpatient (REF) | payer MEDICARE, MEDICAID, OTHER ==
[2018-07-26 15:10] LABS: BASO # 0.1 10^3/uL (0.0-0.2); BASO % 0.4 % (0.0-1.0); EOS % 0.1 % (0.0-3.0); HEMATOCRIT 50.7 % (36.0-47.0); LYMPH # 2.6 10^3/uL (1.5-4.5); LYMPH % 18.7 % (24.0-44.0); MEAN CORPUSCULAR HEMOGLOBIN 31.1 pg (27.0-33.0); MEAN CORPUSCULAR HGB CONC 33.5 g/dl (32.0-36.5); MEAN CORPUSCULAR VOLUME 92.9 fl (80.0-96.0); MONO # 1.2 10^3/uL (0.0-0.8); MONO % 8.6 % (0.0-5.0); NEUTROPHILS % 71.9 % (36.0-66.0); PLATELET COUNT, AUTOMATED 324 10^3/uL (150-450); RED BLOOD COUNT 5.46 10^6/uL (4.00-5.40); WHITE BLOOD COUNT 13.9 10^3/uL (4.0-10.0)
[2018-07-26 15:22] LABS: ALBUMIN 3.9 GM/DL (3.2-5.2); ALT/SGPT 29 U/L (12-78); BILIRUBIN,TOTAL 0.5 MG/DL (0.2-1.0); BLOOD UREA NITROGEN 14 MG/DL (7-18); CALCIUM LEVEL 9.4 MG/DL (8.8-10.2); CARBON DIOXIDE LEVEL 25 MEQ/L (21-32); CHLORIDE LEVEL 107 MEQ/L (98-107); CHOLESTEROL LEVEL 218 MG/DL (<200); CHOLESTEROL RISK RATIO 3.353 (<5); CREATININE FOR GFR 0.74 MG/DL (0.55-1.30); FREE T4 1.03 NG/DL (0.76-1.46); GLOMERULAR FILTRATION RATE > 60.0 (>45); GLUCOSE, FASTING 95 MG/DL (70-100); HDL CHOLESTEROL 65 MG/DL (>40); LDL CHOLESTEROL 125 MG/DL (<100); NON-HDL-C 153 MG/DL; POTASSIUM SERUM 4.7 MEQ/L (3.5-5.1); SODIUM LEVEL 138 MEQ/L (136-145); TOTAL PROTEIN 7.6 GM/DL (6.4-8.2); TRIGLYCERIDES LEVEL 142 MG/DL (<150)
[2018-07-26 15:25] LABS: TOTAL 25(OH) VITAMIN D 56.6 NG/ML (30.0-100.0)
== END ==
LOC: M SFHCSACK 09:12
PROVIDERS: ATTEND Physician Assistant
DX: Z00.00 Encounter for general adult medical examination without abnormal findings (principal); E78.2 Mixed hyperlipidemia; Z13.29 Encounter for screening for other suspected endocrine disorder; E55.9 Vitamin D deficiency, unspecified

== ENCOUNTER → 2018-12-20 | Outpatient (REF) | payer MEDICARE, MEDICAID ==
[~2018-12-20] MED LIST changes: +BUPR150T3 PO; +CHOL50002 PO; +CLON0.5T17 PO; +DOXY100C PO; +INCR1INH INH; +LITH150C PO; +MULTCAP PO; +VRAY1.5C PO
[2018-12-23 00:06] LABS: ANTI THROMBIN 3 ANTIGEN IMMUNO 101 % (72-124); ANTI THROMBIN 3 FUNCT ACTIVITY 122 % (75-135); PROTEIN C FUNCTIONAL ACTIVITY 154 % (73-180); PROTEIN S FUNCTIONAL ACTIVITY 95 % (63-140)
[2018-12-25 11:00] LABS: DRVV SCREEN 35.3 SEC
[2018-12-25 11:02] LABS: PTT LUPUS TYPE ANTICOAG SCREEN 0.9 (0-1.2)
[2018-12-28 00:06] LABS: ANCA-ATYPICAL <1:20 titer (Neg:<1:20); CARDIOLIPIN IGA ANTIBODY <9 APL U/mL (0-11); CARDIOLIPIN IGG ANTIBODY <9 GPL U/mL (0-14); CARDIOLIPIN IGM ANTIBODY <9 MPL U/mL (0-12); CYTOPLASMIC NEUTROP AB ANCA-C <1:20 titer (Neg:<1:20); PERINUCLEAR AB ANCA-P <1:20 titer (Neg:<1:20)
== END ==
LOC: M LABNEURO 10:44
PROVIDERS: ATTEND Psychiatry & Neurology Neurology
DX: I77.6 Arteritis, unspecified (principal)

== ENCOUNTER → 2018-12-24 | Outpatient (CLI) | payer MEDICARE, MEDICAID ==
[~2018-12-24] MED LIST changes: +ASPI81CH33 PO; +CLON0.5T2 PO; -CLON0.5T8 PO
--- NOTE | 2018-12-24 13:24 | REP ---
DIAGNOSTIC MAMMOGRAM LEFT BREAST WITH 3D TOMOSYNTHESIS, LEFT BREAST ULTRASOUND: Patient has a history of left breast cancer with lumpectomy 2015, with radiation and tamoxifen therapy. Reportedly there is a palpable lump in the region of the incision around the nipple I am told at 3 o'clock. Additional spot compression views are performed, in addition to the 3D tomosynthesis views in the MLO and CC projections. Comparison is made with prior studies, most recent of which is 03/06/2018. There is moderately dense heterogeneous fibroglandular tissue again seen in the left breast. There is postsurgical architectural distortion in the region of 12 o'clock with metallic clips seen in this region. There is an oval fat density containing multiple linear calcifications compatible with an area of postsurgical fat necrosis. Surrounding postsurgical architectural distortion is present. No new mass is seen mammographically. No suspicious clusters of microcalcifications are seen. Real-time sonographic evaluation of the left breast performed in the region of the palpable abnormality. There is an oval area of predominantly fluid with peripheral linear calcifications and a small solid appearing peripheral component. This measures 2.5 x 1.0 x 1.5 cm. It corresponds to the area of fat necrosis. Surrounding ill-defined shadowing is compatible with postsurgical change. No other cystic or solid mass is seen. IMPRESSION: BIRADS 2: BI-RADS/ACR category 2 mammogram. Benign Findings. Mammographically there are postsurgical changes again noted in the 12 o'clock region, with an area of fat necrosis adjacent to metallic surgical clips. No new mass or suspicious clusters of microcalcifications. The area of fat necrosis is also seen sonographically as a predominantly cystic area containing a small echogenic component peripherally and peripheral linear calcifications, 2.5 x 1.0 x 1.5 cm. No adjacent suspicious mass sonographically. Recommend followup mammogram of the right breast in February 2019 at the time of routine screening. If there is continued clinical concern for an abnormality in the left breast, consider MRI of the breasts with and without contrast, which would be more sensitive in the detection of underlying neoplasm. Electronically Signed by Riky Nolasco MD 12/24/2018 04:20 P
== END ==
LOC: M RAD 11:29
PROVIDERS: ATTEND Student in an Organized Health Care Education/Training Program
DX: N63.20 Unspecified lump in the left breast, unspecified quadrant (principal); N64.4 Mastodynia
CPT/HCPCS: 76642; 77065; G0279

== ENCOUNTER → 2019-03-27 | Outpatient (REF) | payer MEDICARE ==
[2019-03-27 14:42] LABS: BASO # 0.1 10^3/uL (0.0-0.2); BASO % 0.7 % (0.0-1.0); EOS # 0.2 10^3/uL (0.0-0.5); EOS % 2.4 % (0.0-3.0); HEMATOCRIT 46.2 % (36.0-47.0); HEMOGLOBIN 14.9 g/dl (12.0-15.5); LYMPH # 2.2 10^3/uL (1.5-5.0); LYMPH % 30.1 % (24.0-44.0); MEAN CORPUSCULAR HGB CONC 32.3 g/dl (32.0-36.5); MONO # 0.7 10^3/uL (0.0-0.8); MONO % 9.9 % (0.0-5.0); NEUTROPHILS # 4.1 10^3/uL (1.5-8.5); NEUTROPHILS % 56.6 % (36.0-66.0); PLATELET COUNT, AUTOMATED 278 10^3/uL (150-450); RED BLOOD COUNT 4.81 10^6/uL (4.00-5.40); WHITE BLOOD COUNT 7.2 10^3/uL (4.0-10.0)
[2019-03-27 14:56] LABS: ALBUMIN 3.7 GM/DL (3.2-5.2); ALT/SGPT 32 U/L (12-78); BILIRUBIN,TOTAL 0.9 MG/DL (0.2-1.0); BLOOD UREA NITROGEN 12 MG/DL (7-18); CALCIUM LEVEL 8.9 MG/DL (8.8-10.2); CARBON DIOXIDE LEVEL 26 MEQ/L (21-32); CHLORIDE LEVEL 110 MEQ/L (98-107); CHOLESTEROL LEVEL 182 MG/DL (<200); CHOLESTEROL RISK RATIO 2.637 (<5); CREATININE FOR GFR 0.74 MG/DL (0.55-1.30); FREE T4 1.01 NG/DL (0.76-1.46); GLOMERULAR FILTRATION RATE > 60.0 (>45); GLUCOSE, FASTING 82 MG/DL (70-100); HDL CHOLESTEROL 69 MG/DL (>40); LDL CHOLESTEROL 100 MG/DL (<100); NON-HDL-C 113 MG/DL; POTASSIUM SERUM 4.5 MEQ/L (3.5-5.1); SODIUM LEVEL 142 MEQ/L (136-145); TOTAL PROTEIN 7.3 GM/DL (6.4-8.2); TRIGLYCERIDES LEVEL 67 MG/DL (<150)
[2019-03-27 14:57] LABS: TOTAL 25(OH) VITAMIN D 46.6 NG/ML (30.0-100.0)
== END ==
LOC: M SFHCLERA 08:54
PROVIDERS: ATTEND Physician Assistant
DX: F41.8 Other specified anxiety disorders (principal); E55.9 Vitamin D deficiency, unspecified; D72.829 Elevated white blood cell count, unspecified; E78.2 Mixed hyperlipidemia

== ENCOUNTER → 2019-07-23 | Outpatient (CLI) | payer MEDICARE, MEDICAID ==
[~2019-07-23] MED LIST changes: +CYCL-707 PO; -CYCL10TA PO
--- NOTE | 2019-07-23 09:55 | REP ---
REASON: Followup. COMPARISON: Multiple, the latest 07/16/2018. As per protocol, only lung window images were sent to the read station for interpretation. There are biapical pleuroparenchymal changes status quo. There are emphysematous changes which are stable. There is cylindrical bronchiectasis status quo. There are no new abnormal nodules, masses, or opacities. The mediastinum and pulmonary ramya are grossly unchanged and within normal limits. The imaged upper abdomen and imaged osseous structures are grossly unchanged and within normal limits. IMPRESSION: Stable appearing chronic changes. Lung RADS category 1. Electronically Signed by Edward Kim DO 07/23/2019 10:55 A
== END ==
LOC: M RAD 09:06
PROVIDERS: ATTEND Internal Medicine Pulmonary Disease
DX: F17.218 Nicotine dependence, cigarettes, with other nicotine-induced disorders (principal)

== ENCOUNTER → 2020-01-02 | Outpatient (CLI) | payer MEDICARE, MEDICAID ==
--- NOTE | 2020-01-07 07:00 | SLEEPCENT ---
DATE: 01/02/2020 ORDERED BY: Dr. Stevens Nocturnal polysomnography was performed for evaluation of sleep physiology in this patient with a history of excessive somnolence and nonrestorative sleep. There was 7 hours and 25 minutes of data reviewed. There was 268.5 minutes of sleep identified. Sleep latency was normal at 10 minutes. REM latency was delayed at 336 minutes. Sleep architecture shows poor progression with periods of wake early in the study. There was only one REM cycle noted. Overall sleep efficiency 61.4%. The patient's electrocardiogram showed a sinus rhythm with occasional premature ventricular contractions (PVCs). Average heart rate 66 beats per minute. EEG showed reasonably normal Waveforms for wake and sleep. There were 43 respiratory events identified of 10 seconds in duration or greater for an apnea-hypopnea index of 9.6. The events were primarily obstructive, not exclusive to sleep stage, more frequent in the supine posture but not exclusive to that position. Arousals from respiratory events occurred 6.3 times per hour, and remaining measures of sleep physiology were normal. IMPRESSION: Obstructive sleep apnea syndrome (G47.33). Apnea-hypopnea index 9.6.. RECOMMENDATION: The patient should be encouraged to return to the sleep disorder center for pressure therapy. In the interim, alcohol and sedative avoidance should be practiced and caution exercised during the operation of motor vehicles. ROD
== END ==
LOC: M SLEEP 20:00
PROVIDERS: ATTEND Internal Medicine Pulmonary Disease
DX: G47.33 Obstructive sleep apnea (adult) (pediatric) (principal)

== ENCOUNTER → 2020-03-09 | Outpatient (CLI) | payer MEDICARE, MEDICAID ==
--- NOTE | 2020-03-09 10:56 | REPMRS ---
Patient History The patient states she has not had a clinical breast exam in over a year. Family history of prostate cancer at age 30 in brother, prostate cancer at age 50 in maternal grandfather. Malignant lumpectomy of the left breast, February 19, 2015. Taking tamoxifen for 4 years. Digital Woman Screen Mammo: March 09, 2020 - Exam #: [id number] Bilateral CC and MLO view(s) were taken. Technologist: Yanci Reddy, Technologist Prior study comparison: December 24, 2018, left breast digital mammo diagnostic unilateral, performed at [facility]. March 06, 2018, bilateral digital woman screen mammo performed at [facility] and [facility]. January 15, 2015, bilateral digital woman screen mammo, performed at [facility]. FINDINGS: There are scattered fibroglandular densities. The Volpara volumetric breast density category is:B. There is a stable 19 mm low-density nodule in the left breast containing peripheral calcifications adjacent to surgical clips. This is an area of fat necrosis and has a benign appearance. Stable post treatment changes are noted on the left. There has been no change in the appearance of the mammogram from the prior studies. There is a mild amount of scattered fibroglandular density which is fairly symmetric. There is no interval development of dominant mass, architectural distortion, or grouped microcalcification suggestive of malignancy. 3-D tomosynthesis shows no additional findings. Assessment: BI-RADS/ACR category 2 mammogram. Benign Findings. Recommendation Routine screening mammogram of both breasts in 1 year (for women over age 40). This mammogram was interpreted with the aid of an FDA-approved computer-aided dectection system. Electronically Signed By: Joe Izquierdo MD 03/09/20 [id number]
== END ==
LOC: M WHC 09:45
PROVIDERS: ATTEND Internal Medicine Medical Oncology
DX: Z12.31 Encounter for screening mammogram for malignant neoplasm of breast (principal); N63.20 Unspecified lump in the left breast, unspecified quadrant; Z85.3 Personal history of malignant neoplasm of breast; Z79.899 Other long term (current) drug therapy

== ENCOUNTER → 2020-04-29 | Outpatient (REF) | payer MEDICARE ==
[~2020-04-29] MED LIST changes: -BUPR150T3 PO; +BUPR150T4 PO
[2020-04-29 10:38] LABS: BASO % 0.3 % (0.0-1.0); EOS # 0.3 10^3/uL (0.0-0.5); EOS % 2.8 % (0.0-3.0); HEMATOCRIT 48.6 % (36.0-47.0); HEMOGLOBIN 16.1 g/dl (12.0-15.5); MEAN CORPUSCULAR HEMOGLOBIN 30.3 pg (27.0-33.0); MEAN CORPUSCULAR HGB CONC 33.1 g/dl (32.0-36.5); MEAN CORPUSCULAR VOLUME 91.5 fl (80.0-96.0); MONO # 0.9 10^3/uL (0.0-0.8); NEUTROPHILS # 5.4 10^3/uL (1.5-8.5); NEUTROPHILS % 56.5 % (36.0-66.0); PLATELET COUNT, AUTOMATED 312 10^3/uL (150-450); RED BLOOD COUNT 5.31 10^6/uL (4.00-5.40); WHITE BLOOD COUNT 9.5 10^3/uL (4.0-10.0)
[2020-04-29 11:14] LABS: ALBUMIN 3.7 GM/DL (3.2-5.2); ALT/SGPT 36 U/L (12-78); BILIRUBIN,TOTAL 0.6 MG/DL (0.2-1.0); BLOOD UREA NITROGEN 18 MG/DL (7-18); CALCIUM LEVEL 9.5 MG/DL (8.8-10.2); CARBON DIOXIDE LEVEL 27 MEQ/L (21-32); CHLORIDE LEVEL 108 MEQ/L (98-107); CHOLESTEROL LEVEL 200 MG/DL (<200); CHOLESTEROL RISK RATIO 3.333 (<5); CREATININE FOR GFR 0.91 MG/DL (0.55-1.30); FREE T4 0.89 NG/DL (0.76-1.46); GLOMERULAR FILTRATION RATE > 60.0 (>45); GLUCOSE, FASTING 103 MG/DL (70-100); HDL CHOLESTEROL 60 MG/DL (>40); LDL CHOLESTEROL 106 MG/DL (<100); NON-HDL-C 140 MG/DL; POTASSIUM SERUM 4.8 MEQ/L (3.5-5.1); SODIUM LEVEL 140 MEQ/L (136-145); TOTAL PROTEIN 7.4 GM/DL (6.4-8.2); TRIGLYCERIDES LEVEL 169 MG/DL (<150)
[2020-04-29 11:18] LABS: TOTAL 25(OH) VITAMIN D 37.4 NG/ML (30.0-100.0)
== END ==
LOC: M SFHCPLAZ 08:15
PROVIDERS: ATTEND Nurse Practitioner Family
DX: M79.7 Fibromyalgia (principal); E78.5 Hyperlipidemia, unspecified; F41.8 Other specified anxiety disorders; E55.9 Vitamin D deficiency, unspecified; Z79.899 Other long term (current) drug therapy

== ENCOUNTER → 2020-06-02 | Outpatient (CLI) | payer MEDICARE, MEDICAID ==
--- NOTE | 2020-06-02 12:42 | REP ---
INDICATION: DEEP INGUINAL PAIN RIGHT. Patient relates that the pain radiates from the hip all way down to mid thigh. Deep inguinal pain on the right. COMPARISON: None. TECHNIQUE: Soft tissue sonography of the right inguinal region is performed. FINDINGS: Scanning is performed through the area patient's pain in the inguinal soft tissues extending into the upper thigh. No soft tissue abnormality is noted. No cyst, mass, hernia, or abnormal fluid collection is seen. IMPRESSION: Negative soft tissue sonography targeted to the area of patient pain. <Electronically signed by Joe Izquierdo > 06/02/20 [id number]
== END ==
LOC: M WHC 08:52
PROVIDERS: ATTEND Nurse Practitioner Family
DX: R10.31 Right lower quadrant pain (principal)

== ENCOUNTER → 2020-09-29 | Outpatient (CLI) | payer MEDICARE, MEDICAID ==
[~2020-09-29] MED LIST changes: +BUPR150T12 PO; -BUPR150T4 PO
--- NOTE | 2020-09-29 09:41 | REP ---
INDICATION: NICOTINE DEPENDENCE, LUNG CANCER SCREENING. COMPARISON: Multiple the latest 07/23/2019 TECHNIQUE: Axial noncontrast images from the thoracic inlet to the upper abdomen using low-dose lung screening technique (LDCT). As per the protocol only lung window images were sent to the read station for interpretation FINDINGS: There is unchanged biapical pleuroparenchymal scarring. No new abnormal nodules, masses, or opacities have developed. There is stable cylindrical bronchiectasis. There are stable emphysematous changes seen particularly in the lung apical regions. Grossly, the mediastinum and pulmonary ramya are unchanged. Grossly, the imaged upper abdomen and imaged osseous structures are unchanged. There is no pleural or pericardial effusion. IMPRESSION: Stable appearing chronic changes. Lung rads category 1. According to the revised Fleischner society criteria continued surveillance may be necessary. <Electronically signed by Edward Kim > 09/29/20 [id number]
== END ==
LOC: M RAD 09:18
PROVIDERS: ATTEND Internal Medicine Pulmonary Disease
DX: F17.218 Nicotine dependence, cigarettes, with other nicotine-induced disorders (principal)

== ENCOUNTER → 2021-04-07 | Outpatient (CLI) | payer MEDICARE, MEDICAID ==
[~2021-04-07] MED LIST changes: -DOXY100C PO; +DOXY100C3 PO
--- NOTE | 2021-04-07 11:54 | REP ---
INDICATION: PAIN COMPARISON: None. TECHNIQUE: Internal rotation, external rotation, and Y view. FINDINGS: Age-related osteopenia noted along with cortical irregularity and very subtle inferior spurring at the acromioclavicular joint. The acromion process is normal in position/appearance. The subacromial space is normal. There is mild cortical irregularity to the ossified glenoid rim. The humeral head suggest a very subtle broad-based early spur along the inferior margin. There is no evidence for acute fracture or dislocation. IMPRESSION: Mild generalized arthritic changes. <Electronically signed by Clyde Rashid > 04/07/21 [id number]
== END ==
LOC: M WUC 10:57
PROVIDERS: ATTEND Nurse Practitioner Family
DX: M85.89 Other specified disorders of bone density and structure, multiple sites (principal)

== ENCOUNTER 2021-05-21 09:20 | Emergency (ER) | payer MEDICARE, MEDICAID ==
[~2021-05-21] VITALS: Ht 170.2 cm; Wt 57.9 kg
[2021-05-21 10:59] LABS: BASO % 0.4 % (0.0-1.0); EOS # 0.1 10^3/uL (0.0-0.5); EOS % 0.5 % (0.0-3.0); HEMATOCRIT 44.9 % (36.0-47.0); LYMPH % 21.1 % (24.0-44.0); MEAN CORPUSCULAR HEMOGLOBIN 30.6 pg (27.0-33.0); MEAN CORPUSCULAR HGB CONC 33.4 g/dl (32.0-36.5); MEAN CORPUSCULAR VOLUME 91.6 fl (80.0-96.0); MONO # 0.6 10^3/uL (0.0-0.8); MONO % 6.6 % (2.0-8.0); NEUTROPHILS # 6.6 10^3/uL (1.5-8.5); NEUTROPHILS % 71.1 % (36.0-66.0); PLATELET COUNT, AUTOMATED 295 10^3/uL (150-450); WHITE BLOOD COUNT 9.3 10^3/uL (4.0-10.0)
[2021-05-21 11:26] LABS: ACETAMINOPHEN LEVEL < 2.0 UG/ML (10.0-30.0); ALBUMIN 3.8 GM/DL (3.2-5.2); ALT/SGPT 44 U/L (12-78); BILIRUBIN,DIRECT 0.2 MG/DL (0.0-0.2); BILIRUBIN,TOTAL 0.5 MG/DL (0.2-1.0); BLOOD UREA NITROGEN 12 MG/DL (7-18); CALCIUM LEVEL 9.4 MG/DL (8.8-10.2); CARBON DIOXIDE LEVEL 26 MEQ/L (21-32); CHLORIDE LEVEL 109 MEQ/L (98-107); CREATININE FOR GFR 0.66 MG/DL (0.55-1.30); GLOMERULAR FILTRATION RATE > 60.0 (>45); GLUCOSE, FASTING 103 MG/DL (70-100); POTASSIUM SERUM 4.5 MEQ/L (3.5-5.1); SODIUM LEVEL 141 MEQ/L (136-145); TOTAL PROTEIN 7.3 GM/DL (6.4-8.2)
[2021-05-21 11:43] LABS: RSV AMPLIFICATION NEGATIVE (NEGATIVE)
[2021-05-21 11:45] LABS: AMPHETAMINES LEVEL URINE NEGATIVE (NEGATIVE); BARBITURATES URINE NEGATIVE (NEGATIVE); BENZODIAZEPINES URINE NEGATIVE (NEGATIVE); CANNABINOIDS URINE POSITIVE (NEGATIVE); COCAINE METABOLITE URINE NEGATIVE (NEGATIVE); METHADONE URINE NEGATIVE (NEGATIVE); OPIATES URINE POSITIVE (NEGATIVE); PHENCYCLIDINE URINE NEGATIVE (NEGATIVE)
[2021-05-21 14:17] VITALS: BP 160/103
== END 2021-05-21 14:24 | disposition home or self-care (01) ==
LOC: M ED 09:20
DX: R53.1 Weakness (principal); M79.7 Fibromyalgia; G47.30 Sleep apnea, unspecified; J44.9 Chronic obstructive pulmonary disease, unspecified; Z86.73 Personal history of transient ischemic attack (TIA), and cerebral infarction without residual deficits; F32.A Depression, unspecified; F43.10 Post-traumatic stress disorder, unspecified; F17.200 Nicotine dependence, unspecified, uncomplicated; Z88.8 Allergy status to other drugs, medicaments and biological substances; Z79.899 Other long term (current) drug therapy

== ENCOUNTER → 2021-06-18 | Outpatient (REF) | payer MEDICARE, MEDICAID ==
[2021-06-18 15:22] LABS: HEMATOCRIT 43.8 % (36.0-47.0); HEMOGLOBIN 14.9 g/dl (12.0-15.5); MEAN CORPUSCULAR HEMOGLOBIN 31.3 pg (27.0-33.0); PLATELET COUNT, AUTOMATED 309 10^3/uL (150-450); RED BLOOD COUNT 4.76 10^6/uL (4.00-5.40); WHITE BLOOD COUNT 6.9 10^3/uL (4.0-10.0)
[2021-06-18 15:52] LABS: ALBUMIN 3.5 GM/DL (3.2-5.2); ALT/SGPT 23 U/L (12-78); BILIRUBIN,TOTAL 0.4 MG/DL (0.2-1.0); BLOOD UREA NITROGEN 14 MG/DL (7-18); CARBON DIOXIDE LEVEL 30 MEQ/L (21-32); CHLORIDE LEVEL 110 MEQ/L (98-107); CREATININE FOR GFR 0.65 MG/DL (0.55-1.30); FREE THYROXINE INDEX 3.2 % (1.3-4.8); GLOMERULAR FILTRATION RATE > 60.0 (>45); GLUCOSE, FASTING 75 MG/DL (70-100); POTASSIUM SERUM 5.1 MEQ/L (3.5-5.1); SODIUM LEVEL 142 MEQ/L (136-145); T UPTAKE 39 % (30-39); THYROID STIMULATING HORMONE 0.959 uIU/ML (0.358-3.740); THYROXINE (T4) 8.2 UG/DL (4.5-12.0)
== END ==
LOC: M LAB REF 12:37
PROVIDERS: ATTEND Nurse Practitioner Adult Health
DX: R62.7 Adult failure to thrive (principal); Z79.899 Other long term (current) drug therapy

== ENCOUNTER → 2021-06-22 | Outpatient (REF) | payer MEDICARE, MEDICAID | LOC: M LAB REF 13:13 | PROVIDERS: ATTEND Nurse Practitioner Adult Health | DX: R62.7 Adult failure to thrive (principal) ==

== ENCOUNTER → 2021-08-23 | Outpatient (CLI) | payer MEDICARE, MEDICAID | LOC: M WHC 08:50 | PROVIDERS: ATTEND Nurse Practitioner Family | DX: Z12.31 Encounter for screening mammogram for malignant neoplasm of breast (principal) ==